=== PATIENT | male | born 2000 | race African-American/Black ===

== ENCOUNTER 2024-10-28 12:19 | Emergency (ER) | payer OTHER ==
[~2024-10-28] VITALS: Ht 180.3 cm; Wt 100.7 kg
[2024-10-28] MEDS ORDERED: CLEO300C2 PO (16:36)
[2024-10-28] MEDS: KETOROLAC 30 MG/ML 1 ML VIAL IM ONE (16:40)
[2024-10-28] MEDS: predniSONE 20 MG TAB PO ONE (16:40)
[2024-10-28 16:43] VITALS: BP 130/74; TEMP 97.7; O2SAT 100
== END 2024-10-28 16:43 | disposition home or self-care (01) ==
LOC: M ED 12:19
DX: R51.9 Headache, unspecified (principal); H66.001 Acute suppurative otitis media without spontaneous rupture of ear drum, right ear; Z88.1 Allergy status to other antibiotic agents; Z79.2 Long term (current) use of antibiotics
CPT/HCPCS: 87486; 87581; 87633; 87798; 96372; 99283; J1885; J7512